=== PATIENT | male | born 1990 | race African-American/Black ===

== ENCOUNTER 2023-01-29 15:19 | Emergency (ER) | payer OTHER ==
[~2023-01-29] VITALS: Ht 170.2 cm; Wt 84.8 kg
[2023-01-29 15:24] VITALS: BP 119/66; PULSE 110; RESP 20; TEMP 98.3; O2SAT 99
[2023-01-29] MEDS ORDERED: KETOROLAC 30 MG/ML VIAL IM ONE (15:45)
[2023-01-29] MEDS ORDERED: LID5T TP (16:16)
[2023-01-29] MEDS ORDERED: NAPR-54 PO (16:16)
[2023-01-29 17:14] VITALS: BP 121/70; PULSE 89; RESP 18; TEMP 98.3; O2SAT 99
== END 2023-01-29 17:14 | disposition home or self-care (01) ==
LOC: MED 15:19
DX: M79.641 Pain in right hand (principal); Z79.899 Other long term (current) drug therapy
CPT/HCPCS: 73130; 96372; 99283; J1885